=== PATIENT | female | born 1985 | race African-American/Black ===

== ENCOUNTER 2017-01-06 09:28 | Inpatient (IN) | payer MEDICAID ==
[~2017-01-06] VITALS: Ht 165.1 cm; Wt 99.8 kg
--- NOTE | 2017-01-06 09:28 | NUR ---
Brought in by son with c/o chest pain on&off x1day. Placed in room 8, placed on hospital gown, noted high BP 202/138. With left leg/foot cast.
[2017-01-06] MEDS ORDERED: NITROGLYCERIN 0.4 MG/TAB BOTTLE ONE (09:49)
[2017-01-06] MEDS ORDERED: ASPIRIN 81 MG TAB.CHEW ONE (09:50)
[2017-01-06] MEDS ORDERED: ASPIRIN 81 MG TAB.CHEW PO ONE (10:00)
[2017-01-06] MEDS ORDERED: NITROGLYCERIN 0.4 MG/TAB BOTTLE SL ONE (10:00)
--- NOTE | 2017-01-06 10:10 | NUR ---
right foot 20g iv accessed patent and flushing well.
[2017-01-06] MEDS ORDERED: FLUORESCEIN SODIUM OPHTH 1 EA STRIP ONE (10:13)
[2017-01-06] MEDS ORDERED: TETRACAINE HCL/PF 0.5% UD 2 ML BOTTLE ONE (10:13)
[2017-01-06] MEDS ORDERED: ONDANSETRON HCL/PF 4 MG/2 ML VIAL ONE (10:13)
[2017-01-06] MEDS ORDERED: MORPHINE SULFATE INJ 4 MG/ML DISP.SYRIN ONE (10:14)
--- NOTE | 2017-01-06 10:18 | NUR ---
Given 3 doses of Nitro SL, still with c/o 8/10 chest pain. Made MD aware, obtained order for Morphine, given as ordered. BP 212/138.
[2017-01-06 10:19] LABS: BASOPHILS % (AUTO) 0.6 % (0.0-2.0); EOSINOPHILS # (AUTO) 0.4 /CMM (0.0-0.7); EOSINOPHILS % (AUTO) 5.6 % (0.0-6.0); HEMATOCRIT 27 % (33-45); HEMOGLOBIN 8.9 g/dL (11.5-14.8); LYMPHOCYTES # (AUTO) 0.8 /CMM (0.8-4.8); LYMPHOCYTES % (AUTO) 10.3 % (20.0-44.0); MEAN CORPUSCULAR HEMOGLOBIN 29 PG (26.0-33.0); MEAN CORPUSCULAR HGB CONC 33 g/dl (31.0-36.0); MEAN CORPUSCULAR VOLUME 88 fL (82-100); MONOCYTES # (AUTO) 0.7 /CMM (0.1-1.30); MONOCYTES % (AUTO) 8.7 % (2.0-12.0); NEUTROPHILS # (AUTO) 6.1 /CMM (1.8-8.9); NEUTROPHILS % (AUTO) 74.8 % (43.0-81.0); PLATELET COUNT (AUTO) 192 /CMM (150-450); RDW COEFFICIENT OF VARIATION 15.6 (11.5-15.0); RED BLOOD CELL COUNT(AUTO) 3.06 MIL/uL (4.0-5.2)
[2017-01-06] MEDS ORDERED: CARV25TA2 PO (10:20)
[2017-01-06] MEDS ORDERED: TOPI-67 PO (10:20)
[2017-01-06] MEDS ORDERED: NIFE60TA7 PO (10:20)
[2017-01-06] MEDS ORDERED: HYDR-4076 PO (10:20)
[2017-01-06] MEDS ORDERED: AMIT25TA9 PO (10:21)
[2017-01-06] MEDS ORDERED: SERT50TA PO (10:21)
[2017-01-06] MEDS ORDERED: APIX5TAB PO (10:22)
[2017-01-06 10:27] LABS: CALCIUM, SERUM 8.3 mg/dL (8.5-10.1); POTASSIUM 3.8 mmol/L (3.5-5.1)
[2017-01-06 10:28] LABS: CREATININE 9.8 mg/dL (0.6-1.3)
[2017-01-06 10:29] LABS: INR 1.04 (0.87-1.13); PROTHROMBIN TIME 10.8 SECS (9.5-12.7)
[2017-01-06] MEDS ORDERED: MORPHINE SULFATE INJ 4 MG/ML DISP.SYRIN IV ONE (10:30)
[2017-01-06] MEDS ORDERED: ONDANSETRON HCL/PF 4 MG/2 ML VIAL IV ONE (10:30)
[2017-01-06] MEDS ORDERED: FLUORESCEIN SODIUM OPHTH 1 EA STRIP OP ONE (10:30)
[2017-01-06] MEDS ORDERED: TETRACAINE HCL 0.5% OPHTALMIC 15 ML BOTTLE OP ONE (10:30)
[2017-01-06 10:36] LABS: TROPONIN I 0.017 ng/mL (0.00-0.056)
--- NOTE | 2017-01-06 12:11 | NUR ---
dr guillaume speaking with dr dolan at this time
[2017-01-06] MEDS ORDERED: CLONIDINE HCL 0.1 MG TABLET PO STA (13:47)
[2017-01-06] MEDS ORDERED: CLONIDINE HCL 0.1 MG TABLET ONE (13:58)
--- NOTE | 2017-01-06 14:13 | NUR ---
Clonidine 0.3 given as ordered for high BP, SBP 190's. Report given to Mayur Root for SIRENA. All questions were answered. Patient aware for admission.
[2017-01-06] MEDS ORDERED: ZOLPIDEM TARTRATE 5 MG TABLET PO PRN (14:30)
[2017-01-06] MEDS ORDERED: MAG HYDROX/AL HYDROX/SIMETH 30 ML UDC PO PRN (14:30)
[2017-01-06] MEDS ORDERED: ONDANSETRON HCL/PF 4 MG/2 ML VIAL IVP PRN (14:30)
[2017-01-06] MEDS ORDERED: ACETAMINOPHEN 325 MG TABLET PO PRN (14:30)
[2017-01-06] MEDS ORDERED: MAGNESIUM HYDROXIDE 30 ML UDC PO PRN (14:30)
[2017-01-06] MEDS ORDERED: Z GUARD REMEDY 2 OZ OINT TP PRN (14:30)
--- NOTE | 2017-01-06 15:10 | NUR ---
RN NOTES RECEIVED PT FROM ED , IN ROOM 115-1, PT IS A/Ox4, RESPIRATION EVEN AND UNLABORED, ON RA , NO SOB NOTED , ON TELE SR IN 60'S , REFUSED TO OPEN EYES , SWELLING TO L EYE NOTED , BP= 208/123 , DR BOWDEN NOTIFIED, PT STATED DID NOT TAKE HER AM BP MEDS , CAST TO L LOWER EXTREMISTS CDI, ABLE TO WIGGLE AND MOVE L FOOT TOES , L FEMORAL HD CATH AND L FOOT IV SITE G 22, CDI, CALL LIGHT WITHIN EASY REACH. BED LOCKED AND IN LOWEST POSITION , CONTINUE TO MONITOR PT CLOSELY AND MONITOR VSS .
--- NOTE | 2017-01-06 16:00 | NUR ---
RN NOTES PT HARD STICK , PT REFUSED TO GET STUCK, WANTS LAND LEVELER TO COME BACK IN ONE HOUR.
[2017-01-06] MEDS: NIFEdipine XL 60 MG TAB PO SCH (16:22)
[2017-01-06] MEDS: hydrALAZINE HCL 25 MG TABLET PO SCH (16:23)
[2017-01-06] MEDS: CARVEDILOL 12.5 MG TABLET PO SCH (16:23)
[2017-01-06] MEDS: TOPIRAMATE 25 MG TABLET PO SCH (16:25)
[2017-01-06] MEDS: APIXABAN 2.5 MG TABLET PO SCH (16:56)
[2017-01-06] MEDS: HYDROCODONE/APAP 5/325MG 1 EACH TABLET PO PRN ×2 (16:56→21:43)
[2017-01-06 17:41] VITALS: BP 163/100
--- NOTE | 2017-01-06 17:41 | NUR ---
RN NOTES BP =163/100. PT SLEEPING AT THIS TIME .
--- NOTE | 2017-01-06 18:58 | NUR ---
RN TOREY BP 158/98, PT AT REST , WILL ENFORCE TO COAT CUTTER NURSE FOR CONTINUITY OF CARE .
[2017-01-06 20:00] VITALS: BP 134/85
--- NOTE | 2017-01-06 20:00 | NUR ---
RN NOTES RECEIVED PATIENT IN BED WITH NO RESPIRATORY DISTRESS OR SHORTNESS OF BREATH. BREATHING EVEN AND UNLABORED. ALERT AND ORIENTED. ABLE TO COMMUNICATE NEEDS VERBALLY. CONTINENT OF BOWEL AND BLADDER FUNCTION. ABDOMEN SOFT AND NON TENDER. VITAL SIGNS WNL. WILL CONTINUE TO MONITOR.
[2017-01-06] MEDS ORDERED: CARVEDILOL 12.5 MG TABLET PO SCH (21:00)
[2017-01-06] MEDS ORDERED: NIFEdipine XL 60 MG TAB PO SCH (21:00)
[2017-01-07] VITALS (7 sets, daily range): BP systolic 93–148; BP diastolic 56–86
[2017-01-07 06:27] LABS: BASOPHILS % (AUTO) 0.5 % (0.0-2.0); EOSINOPHILS # (AUTO) 0.6 /CMM (0.0-0.7); EOSINOPHILS % (AUTO) 9.5 % (0.0-6.0); HEMATOCRIT 26 % (33-45); HEMOGLOBIN 8.7 g/dL (11.5-14.8); LYMPHOCYTES % (AUTO) 16.1 % (20.0-44.0); MEAN CORPUSCULAR HEMOGLOBIN 30 PG (26.0-33.0); MEAN CORPUSCULAR HGB CONC 34 g/dl (31.0-36.0); MEAN CORPUSCULAR VOLUME 90 fL (82-100); MONOCYTES # (AUTO) 0.6 /CMM (0.1-1.30); MONOCYTES % (AUTO) 10.7 % (2.0-12.0); NEUTROPHILS # (AUTO) 3.7 /CMM (1.8-8.9); NEUTROPHILS % (AUTO) 63.2 % (43.0-81.0); PLATELET COUNT (AUTO) 175 /CMM (150-450); RDW COEFFICIENT OF VARIATION 16.7 (11.5-15.0); RED BLOOD CELL COUNT(AUTO) 2.91 MIL/uL (4.0-5.2); WHITE BLOOD COUNT (AUTO) 5.9 K/uL (4.3-11.0)
[2017-01-07 06:45] LABS: CALCIUM, SERUM 7.9 mg/dL (8.5-10.1); PHOSPHORUS 7.9 mg/dL (2.5-4.9); POTASSIUM 3.7 mmol/L (3.5-5.1)
[2017-01-07 06:55] LABS: CREATININE 9.6 mg/dL (0.6-1.3)
[2017-01-07] MEDS: HYDROCODONE/APAP 5/325MG 1 EACH TABLET PO PRN (06:57)
--- NOTE | 2017-01-07 07:00 | NUR ---
RN INITIAL NOTES PT IS IN BED, FAMILY AT BEDSIDE, A/O x4, ON ROOM AIR, NO RESPIRATORY DISTRESS NOTED. NO COMPLAINTS OF PAIN. SINUS ON TELE MONITOR. SKIN INTACT, ABLE TO MOVE ALL 4 EXTREMITIES. HEMODIALYSIS TODAY. ENCOURAGE FOR SELF CARE, ASSISTED WITH ADLS, WILL CONTINUE TO MONITOR FOR CHEST PAIN, MONITOR V/S, SIDE RAILS UP, BED LOCKED AND IN LOWEST POSITION, CALL LIGHT WITHIN REACH.
--- NOTE | 2017-01-07 07:20 | NUR ---
RN NOTES IN BED RESTING WITH NO DISTRESS NOTED. COMPLAINING OF LEFT EYE PAIN, BURNING 01/23. CALLED [facility]ER SPOKE WITH DR REEDER, WITH INSTRUCTION TO REFER TO THE PRIMARY DOCTOR IN AM. NOTED. OFFERED PAIN MED, GAVE NORCO 5/325MG WITH RELIEF. KEPT CLEAN AND DRY. WILL ENDORSE TO AM SHIFT FOR CONTINUITY OF CARE
[2017-01-07] MEDS: TOPIRAMATE 25 MG TABLET PO SCH ×2 (08:31→17:21)
[2017-01-07] MEDS: hydrALAZINE HCL 25 MG TABLET PO SCH ×2 (08:32→17:21)
[2017-01-07] MEDS: NIFEdipine XL 60 MG TAB PO SCH ×2 (08:32→21:54)
[2017-01-07] MEDS: CARVEDILOL 12.5 MG TABLET PO SCH ×2 (08:33→17:22)
[2017-01-07] MEDS ORDERED: SERTRALINE HCL 50 MG TABLET PO SCH (09:00)
[2017-01-07] MEDS ORDERED: APIXABAN 5 MG TABLET PO SCH (09:00)
[2017-01-07] MEDS ORDERED: AMITRIPTYLINE HCL 25 MG TABLET PO SCH (09:00)
[2017-01-07] MEDS: APIXABAN 2.5 MG TABLET PO SCH ×2 (11:24→17:22)
--- NOTE | 2017-01-07 19:23 | NUR ---
RN CLOSING NOTES NO SIGNIFICANT CHANGES DURING AM SHIFT. NO RESPIRATORY DISTRESS NOTED. NO COMPLAINTS OF CHEST PAIN. PT HAS BEEN SINUS ON TELE - NOW ON MED SURG. HEMODIALYSIS DONE, 2 LITERS OUT. V/S STABLE. ENCOURAGE PT OF SELF CARE, PT INDEPENDENT AND COOPERATIVE. ALL MEDS GIVEN ORDERED AND PT TOLERATED IT WELL. SIDE RAILS UP, BED LOCKED AND IN LOWEST POSITION, CALL LIGHTS WITHIN REACH. WILL ENDORSE TO PM NURSE FOR CONTINUATION OF CARE.
--- NOTE | 2017-01-07 20:00 | NUR ---
RN INITIAL NOTES RECEIVED PATIENT IN BED, SLEEPING COMFORTABLY, EASILY AROUSABLE WITH VERBAL AND TACTILE STIMULI. PATIENT DENIES ANY PAIN AND DISCOMFORT. ON ROOM AIR. PATIENT'S BOYFRIEND AT BEDSIDE. PATIENT'S NEEDS ANTICIPATED AND MET. SAFETY AND COMFORT ENSURED. BED IN LOW AND LOCKED POSITION. CALL LIGHT IN REACH.
--- NOTE | 2017-01-07 22:15 | NUR ---
RN NOTES PATIENT LEFT AMA, AFTER PATIENT'S BOYFRIEND HAD AN ALTERCATION WITH NURSING STAFF. INCIDENT REPORT DONE WITH FILE # [id number]. DR. REEDER MADE AWARE. NURSING PARKS AND RECREATION MANAGER AWARE AND IN UNIT.
== END 2017-01-07 22:00 | disposition left against medical advice (07) | DRG 199 ==
LOC: EDBD 09:30 → ER 09:30 → TELE1 13:43 → MEDSG1 01-07 15:57
PROVIDERS: ADMIT Family Medicine; ATTEND Family Medicine
PROC: 5A1D00Z (ICD-10-PCS; principal; 2017-01-07)
DX: I16.0 Hypertensive urgency (principal); N18.6 End stage renal disease; E11.22 Type 2 diabetes mellitus with diabetic chronic kidney disease; I12.0 Hypertensive chronic kidney disease with stage 5 chronic kidney disease or end stage renal disease; Z86.73 Personal history of transient ischemic attack (TIA), and cerebral infarction without residual deficits; Z99.2 Dependence on renal dialysis; Z91.19 Patient's noncompliance with other medical treatment and regimen; Z91.14 Patient's other noncompliance with medication regimen; Z83.3 Family history of diabetes mellitus; I45.81 Long QT syndrome; E66.9 Obesity, unspecified; E87.70 Fluid overload, unspecified; D63.8 Anemia in other chronic diseases classified elsewhere; I44.0 Atrioventricular block, first degree; Z79.01 Long term (current) use of anticoagulants; Z79.899 Other long term (current) drug therapy; Z82.3 Family history of stroke; Z82.49 Family history of ischemic heart disease and other diseases of the circulatory system; Z87.891 Personal history of nicotine dependence; Z76.5 Malingerer [conscious simulation]; I82.C21 Chronic embolism and thrombosis of right internal jugular vein; Z68.36 Body mass index [BMI] 36.0-36.9, adult
CPT/HCPCS: 36415; 71010-TC; 80048-TC; 80061-TC; 83735-TC; 84100-TC; 84484-TC; 85025-TC; 85730-TC; 87081-TC; 90935-TC; A4606; J2270; J2405; Z7610

== ENCOUNTER 2017-06-02 23:36 | Inpatient (IN) | payer MEDICAID ==
[~2017-06-02] VITALS: Ht 165.1 cm; Wt 89.4 kg
[~2017-06-02 23:36] MED LIST: AMIT25TA9 PO; APIX5TAB PO; CARV25TA2 PO; HYDR-4076 PO; NIFE60TA73 PO; SERT50TA PO; TOPI25TA49 PO
[2017-06-03] MEDS ORDERED: MAG HYDROX/AL HYDROX/SIMETH 30 ML UDC PO ONE (01:00)
[2017-06-03] MEDS ORDERED: LIDOCAINE VISCOUS 2% UD 15 ML UDC MM ONE (01:00)
[2017-06-03] MEDS ORDERED: MAG HYDROX/AL HYDROX/SIMETH 30 ML UDC ONE (01:12)
[2017-06-03] MEDS ORDERED: LIDOCAINE VISCOUS 2% UD 15 ML UDC ONE (01:12)
[2017-06-03 02:00] LABS: BASOPHILS % (AUTO) 0.2 % (0.0-2.0); EOSINOPHILS # (AUTO) 0.9 /CMM (0.0-0.7); EOSINOPHILS % (AUTO) 14.3 % (0.0-6.0); HEMATOCRIT 25 % (33-45); HEMOGLOBIN 8.7 g/dL (11.5-14.8); LYMPHOCYTES % (AUTO) 15.9 % (20.0-44.0); MEAN CORPUSCULAR HEMOGLOBIN 32 PG (26.0-33.0); MEAN CORPUSCULAR HGB CONC 34 g/dl (31.0-36.0); MEAN CORPUSCULAR VOLUME 92 fL (82-100); MONOCYTES # (AUTO) 0.4 /CMM (0.1-1.30); MONOCYTES % (AUTO) 6.4 % (2.0-12.0); NEUTROPHILS # (AUTO) 3.8 /CMM (1.8-8.9); NEUTROPHILS % (AUTO) 63.2 % (43.0-81.0); PLATELET COUNT (AUTO) 148 /CMM (150-450); RDW COEFFICIENT OF VARIATION 17.2 (11.5-15.0); RED BLOOD CELL COUNT(AUTO) 2.75 MIL/uL (4.0-5.2)
[2017-06-03 02:18] LABS: TROPONIN I < 0.017 ng/mL (0.00-0.056)
[2017-06-03 02:24] LABS: B-TYPE NATRIURETIC PEPTIDE 13668 PG/ML (0-125); CALCIUM, SERUM 7.8 mg/dL (8.5-10.1); CARBON DIOXIDE 19 mmol/L (21-32); CHLORIDE 104 mmol/L (98-107); GLUCOSE 90 mg/dL (74-106); POTASSIUM 5.9 mmol/L (3.5-5.1); SODIUM SERUM 138 mmol/L (136-145)
[2017-06-03 02:28] LABS: CREATININE 12.6 mg/dL (0.6-1.3); UREA NITROGEN, BLOOD 97 mg/dL (7-18)
[2017-06-03] MEDS ORDERED: NITROGLYCERIN 0.4 MG/TAB BOTTLE ONE (02:32)
[2017-06-03 02:35] LABS: INR 1.03 (0.87-1.13)
[2017-06-03] MEDS ORDERED: NITROGLYCERIN 0.4 MG/TAB BOTTLE SL ONE (03:00)
[2017-06-03] MEDS ORDERED: hydrALAZINE HCL IV 20 MG VIAL ONE ×2 (03:17→04:38)
[2017-06-03] MEDS ORDERED: hydrALAZINE HCL IV 20 MG VIAL IV ONE ×2 (03:30→05:00)
[2017-06-03] MEDS ORDERED: ONDANSETRON HCL/PF 4 MG/2 ML VIAL ONE (03:44)
[2017-06-03] MEDS ORDERED: MORPHINE SULFATE INJ 4 MG/ML DISP.SYRIN ONE (03:45)
[2017-06-03] MEDS ORDERED: ONDANSETRON HCL/PF 4 MG/2 ML VIAL IV ONE (04:00)
[2017-06-03] MEDS ORDERED: MORPHINE SULFATE INJ 2 MG/ML DISP.SYRIN IV ONE (04:00)
[2017-06-03 05:30] VITALS: BP 133/95
[2017-06-03 08:00] VITALS: BP 151/86
[2017-06-03] MEDS ORDERED: TOPI200T16 PO (10:38)
[2017-06-03] MEDS ORDERED: SEVE800T8 PO (10:38)
[2017-06-03] MEDS: MORPHINE SULFATE INJ 4 MG/ML DISP.SYRIN IV PRN ×3 (10:59→22:00)
[2017-06-03] MEDS ORDERED: MAG HYDROX/AL HYDROX/SIMETH 30 ML UDC PO PRN (11:00)
[2017-06-03] MEDS ORDERED: MAGNESIUM HYDROXIDE 30 ML UDC PO PRN (11:00)
[2017-06-03] MEDS ORDERED: SODIUM POLYSTYRENE SULFONATE 15 G/60 ML BOTTLE PO ONE (11:00)
[2017-06-03] MEDS ORDERED: ZOLPIDEM TARTRATE 5 MG TABLET PO PRN (11:00)
[2017-06-03] MEDS ORDERED: ACETAMINOPHEN 325 MG TABLET PO PRN (11:00)
[2017-06-03] MEDS ORDERED: ONDANSETRON HCL/PF 4 MG/2 ML VIAL IVP PRN (11:00)
[2017-06-03 12:00] VITALS: BP 158/105
[2017-06-03] MEDS ORDERED: EPOETIN ALFA (20,000 UNIT) 20,000 UNIT/ML VIAL SQ ONE (14:00)
[2017-06-03 15:18] LABS: ALBUMIN 3.5 g/dL (3.4-5.0); BILIRUBIN,TOTAL 0.3 mg/dL (0.2-1.0); CALCIUM, SERUM 8.1 mg/dL (8.5-10.1); MAGNESIUM 2.1 mg/dL (1.8-2.4); POTASSIUM 5.3 mmol/L (3.5-5.1); TOTAL PROTEIN, SERUM 7.6 g/dL (6.4-8.2)
[2017-06-03 15:37] LABS: CREATININE 12.6 mg/dL (0.6-1.3)
[2017-06-03 16:24] VITALS: BP 138/88
[2017-06-03 17:51] LABS: BASOPHILS % (AUTO) 0.4 % (0.0-2.0); EOSINOPHILS # (AUTO) 0.8 /CMM (0.0-0.7); EOSINOPHILS % (AUTO) 17.5 % (0.0-6.0); HEMATOCRIT 24 % (33-45); LYMPHOCYTES # (AUTO) 0.8 /CMM (0.8-4.8); LYMPHOCYTES % (AUTO) 17.4 % (20.0-44.0); MEAN CORPUSCULAR HEMOGLOBIN 30 PG (26.0-33.0); MEAN CORPUSCULAR HGB CONC 33 g/dl (31.0-36.0); MEAN CORPUSCULAR VOLUME 92 fL (82-100); MONOCYTES # (AUTO) 0.3 /CMM (0.1-1.30); MONOCYTES % (AUTO) 7.4 % (2.0-12.0); NEUTROPHILS # (AUTO) 2.6 /CMM (1.8-8.9); NEUTROPHILS % (AUTO) 57.3 % (43.0-81.0); PLATELET COUNT (AUTO) 154 /CMM (150-450); RDW COEFFICIENT OF VARIATION 17.3 (11.5-15.0); RED BLOOD CELL COUNT(AUTO) 2.64 MIL/uL (4.0-5.2); WHITE BLOOD COUNT (AUTO) 4.6 K/uL (4.3-11.0)
[2017-06-03 20:00] VITALS: BP 183/115
[2017-06-03] MEDS: SEVELAMER CARBONATE 800 MG TABLET PO SCH (20:46)
[2017-06-03] MEDS: CARVEDILOL 12.5 MG TABLET PO SCH (20:47)
[2017-06-03] MEDS: NIFEdipine XL 60 MG TAB PO SCH (20:48)
[2017-06-03] MEDS: TOPIRAMATE 100 MG TABLET PO SCH (20:48)
[2017-06-04] VITALS: BP 192/115
[2017-06-04] MEDS ORDERED: CLONIDINE HCL 0.2MG/24H PTWK 1 EA PATCH TD SCH (01:00)
[2017-06-04] MEDS: HYDROCODONE/APAP 5/325MG 1 EACH TABLET PO PRN ×2 (03:52→08:38)
[2017-06-04 04:06] VITALS: BP_SYST 166
[2017-06-04 04:08] VITALS: BP 169/104
[2017-06-04 07:02] LABS: BASOPHILS % (AUTO) 0.1 % (0.0-2.0); EOSINOPHILS # (AUTO) 0.6 /CMM (0.0-0.7); EOSINOPHILS % (AUTO) 10.5 % (0.0-6.0); HEMATOCRIT 24 % (33-45); LYMPHOCYTES # (AUTO) 0.5 /CMM (0.8-4.8); LYMPHOCYTES % (AUTO) 9.6 % (20.0-44.0); MEAN CORPUSCULAR HEMOGLOBIN 31 PG (26.0-33.0); MEAN CORPUSCULAR HGB CONC 34 g/dl (31.0-36.0); MEAN CORPUSCULAR VOLUME 92 fL (82-100); MONOCYTES # (AUTO) 0.5 /CMM (0.1-1.30); MONOCYTES % (AUTO) 9.6 % (2.0-12.0); NEUTROPHILS # (AUTO) 3.7 /CMM (1.8-8.9); NEUTROPHILS % (AUTO) 70.2 % (43.0-81.0); PLATELET COUNT (AUTO) 153 /CMM (150-450); RDW COEFFICIENT OF VARIATION 17.7 (11.5-15.0); RED BLOOD CELL COUNT(AUTO) 2.59 MIL/uL (4.0-5.2); WHITE BLOOD COUNT (AUTO) 5.3 K/uL (4.3-11.0)
[2017-06-04] MEDS ORDERED: PANTOPRAZOLE 40 MG TABLET.DR PO SCH (07:30)
[2017-06-04 08:00] VITALS: BP 156/91
[2017-06-04] MEDS: APIXABAN 5 MG TABLET PO SCH ×2 (08:36→17:27)
[2017-06-04] MEDS: hydrALAZINE HCL 25 MG TABLET PO SCH ×2 (08:37→17:28)
[2017-06-04] MEDS: TOPIRAMATE 100 MG TABLET PO SCH (08:37)
[2017-06-04] MEDS: SEVELAMER CARBONATE 800 MG TABLET PO SCH ×3 (08:37→17:27)
[2017-06-04] MEDS: CARVEDILOL 12.5 MG TABLET PO SCH (08:37)
[2017-06-04] MEDS: NIFEdipine XL 60 MG TAB PO SCH (08:38)
[2017-06-04] MEDS ORDERED: SERTRALINE HCL 50 MG TABLET PO SCH (09:00)
[2017-06-04] MEDS ORDERED: AMITRIPTYLINE HCL 25 MG TABLET PO SCH (09:00)
[2017-06-04 10:40] LABS: TROPONIN I < 0.017 ng/mL (0.00-0.056)
[2017-06-04 11:00] LABS: ALANINE AMINOTRANSFERASE 28 U/L (12-78); ALBUMIN 3.2 g/dL (3.4-5.0); ALKALINE PHOSPHATASE 53 U/L (46-116); ASPARTATE AMINOTRANSFERASE 19 U/L (15-37); BILIRUBIN,TOTAL 0.2 mg/dL (0.2-1.0); CALCIUM, SERUM 7.5 mg/dL (8.5-10.1); CARBON DIOXIDE 19 mmol/L (21-32); CHLORIDE 104 mmol/L (98-107); GLUCOSE 95 mg/dL (74-106); MAGNESIUM 1.9 mg/dL (1.8-2.4); PHOSPHORUS 6.3 mg/dL (2.5-4.9); POTASSIUM 4.7 mmol/L (3.5-5.1); SODIUM SERUM 139 mmol/L (136-145); TOTAL PROTEIN, SERUM 7.1 g/dL (6.4-8.2)
[2017-06-04 11:05] LABS: CREATININE 11.9 mg/dL (0.6-1.3); UREA NITROGEN, BLOOD 87 mg/dL (7-18)
[2017-06-04 13:22] LABS: CHOLESTEROL 130 mg/dL (<200); HDL CHOLESTEROL 45 mg/dL (40-60); LDL 71 mg/dL (0-99); TRIGLYCERIDES 66 mg/dL (30-150)
[2017-06-04] MEDS ORDERED: HYDR-548 PO (15:13)
[2017-06-04 16:00] VITALS: BP 123/71
[2017-06-04 17:28] VITALS: BP 123/71
== END 2017-06-04 19:00 | disposition home or self-care (01) | DRG 194 ==
LOC: ER 23:37 → TELE 06-03 04:57 → MED 06-04 12:10
PROVIDERS: ADMIT Nurse Practitioner Acute Care; ATTEND Nurse Practitioner Acute Care
PROC: 3E1M39Z Irrigation of Peritoneal Cavity using Dialysate, Percutaneous Approach (ICD-10-PCS; principal; 2017-06-03)
DX: I13.2 Hypertensive heart and chronic kidney disease with heart failure and with stage 5 chronic kidney disease, or end stage renal disease (principal); N17.0 Acute kidney failure with tubular necrosis; E11.22 Type 2 diabetes mellitus with diabetic chronic kidney disease; E87.5 Hyperkalemia; N18.6 End stage renal disease; Z79.01 Long term (current) use of anticoagulants; Z79.899 Other long term (current) drug therapy; Z99.2 Dependence on renal dialysis; F32.9 Major depressive disorder, single episode, unspecified; I16.0 Hypertensive urgency; Z87.891 Personal history of nicotine dependence; Z86.73 Personal history of transient ischemic attack (TIA), and cerebral infarction without residual deficits; Z91.19 Patient's noncompliance with other medical treatment and regimen; D64.9 Anemia, unspecified; Z76.5 Malingerer [conscious simulation]; R07.9 Chest pain, unspecified; Z86.718 Personal history of other venous thrombosis and embolism; J45.909 Unspecified asthma, uncomplicated; I50.33 Acute on chronic diastolic (congestive) heart failure
CPT/HCPCS: 36415; 71045-TC; 80048-TC; 80053-TC; 80061-TC; 83690-TC; 83735-TC; 83880; 84100-TC; 84484-TC; 85025-TC; 85730-TC; 87081-TC; 90935-TC; 93307-TC; A4606; A6402; J0360; J0885; J2270; J2405; Z7610